=== PATIENT | male | born 1980 | race Caucasian/White ===

== ENCOUNTER 2021-09-29 07:19 | Outpatient (CLI) | payer OTHER, SELFPAY ==
[2021-09-29 08:07] LABS: Hematocrit 41.5 % (42.0-52.0); Mean Corpuscular HGB Conc 33.7 g/dl (32-36); Mean Corpuscular Hemoglobin 29.8 pg (26-34); Mean Corpuscular Volume 88.3 fl (80-100); Mean Platelet Volume 10.5 fl (7.4-10.4); Platelet Count Result 268 k/mm3 (150-375); Red Cell Distribution Width 13.2 % (11.5-14.5); White Blood Count 4.3 K/mm3 (4.5-10.0)
[2021-09-29 08:12] LABS: Alanine Aminotransferase 18 U/L (6-50); Albumin Level 3.7 g/dL (3.5-5.1); Alkaline Phosphatase 66 U/L (38-126); Anion Gap 3 mmol/L (8-16); Aspartate Amino Transferase 18 U/L (17-59); Bilirubin,Total 0.5 mg/dL (0.2-1.3); Blood Urea Nitrogen 15 mg/dL (9-20); Calcium 8.4 mg/dL (8.4-10.2); Carbon Dioxide 27 mmol/L (22-30); Chloride 109 mmol/L (98-107); Cholesterol 170 mg/dL (0-200); Estimated Glomerular Filt Rate > 60; Glucose 95 mg/dL (65-110); HDL Direct 45 mg/dL; Sodium 139 mmol/L (137-145); Triglycerides 49 mg/dL (<150)
[2021-09-29 08:24] LABS: LDL Cholesterol Direct 101 mg/dL
[2021-09-29 08:43] LABS: Prostate Specific Antigen 0.8 ng/mL (< OR = 4.0)
== END 2021-09-29 07:20 | disposition home or self-care (01) ==
PROVIDERS: Visit Provider Surgery
DX: Z00.00 Encounter for general adult medical examination without abnormal findings (principal)
CPT/HCPCS: 36415; 80053; 80061; 84153; 85027

== ENCOUNTER → 2021-10-03 01:36 | Outpatient (CLI) | payer OTHER, SELFPAY ==
[2021-10-03 13:24] LABS: SARS-CoV-2 RNA PCR Positive
== END ==
DX: U07.1 COVID-19 (principal)
CPT/HCPCS: C9803; U0003; U0005